=== PATIENT | male | born 1955 | race Asian ===

== ENCOUNTER → 2017-09-08 | Outpatient (CLI) | payer BC ==
[2017-09-08 12:15] LABS: ALT 41 U/L (21-72); AST 26 U/L (17-59); Albumin 4.6 g/dL (3.5-5.0); Alkaline Phosphatase 97 U/L (38-126); Anion Gap 13 mmol/L; Blood Urea Nitrogen 23 mg/dL (9-20); Carbon Dioxide 29 mmol/L (22-30); Chloride 99 mmol/L (98-107); Cholesterol 121 mg/dL (<200); Glucose 97 mg/dL (74-99); HDL Cholesterol 55 mg/dL (40-60); LDL Cholesterol,Calculated 47 mg/dL (0-99); Potassium 4.9 mmol/L (3.5-5.1); Sodium 141 mmol/L (137-145); Total Bilirubin 0.6 mg/dL (0.2-1.3); Total Protein 7.9 g/dL (6.3-8.2); Triglycerides 97 mg/dL (<150)
[2017-09-08 21:13] LABS: Hemoglobin A1C 6.6 % (4.0-6.0)
== END | disposition home or self-care (01) ==
LOC: LABWHC1 11:35
PROVIDERS: ATTEND Internal Medicine Endocrinology, Diabetes & Metabolism
DX: E11.65 Type 2 diabetes mellitus with hyperglycemia (principal)
CPT/HCPCS: 36415; 80053; 80061; 82043; 82570; 83036

== ENCOUNTER → 2018-05-15 | Outpatient (CLI) | payer BC | END | disposition home or self-care (01) | LOC: LABWHC1 09:12 | PROVIDERS: ATTEND Internal Medicine Endocrinology, Diabetes & Metabolism | DX: E11.65 Type 2 diabetes mellitus with hyperglycemia (principal); I10 Essential (primary) hypertension; E29.1 Testicular hypofunction | CPT/HCPCS: 36415; 83002; 84146; 84403; 84443 ==

== ENCOUNTER → 2018-10-27 | Outpatient (CLI) | payer BC ==
[2018-10-28 00:42] LABS: Albumin 4.6 g/dL (3.80-4.90); Albumin/Globulin Ratio 1.92 (1.60-3.17); Anion Gap 10.8 mmol/L (4.00-12.00); Calcium 9.5 mg/dL (8.7-10.3); Carbon Dioxide 27.2 mmol/L (21.6-31.8); Globulin 2.4 g/dL (1.6-3.3); Potassium 4.8 mmol/L (3.5-5.5); Total Bilirubin 0.7 mg/dL (0.3-1.2)
[2018-10-28 01:10] LABS: Hemoglobin A1C 6.5 % (4.0-6.0)
== END | disposition home or self-care (01) ==
LOC: LABWHC1 13:44
PROVIDERS: ATTEND Internal Medicine Endocrinology, Diabetes & Metabolism
DX: E11.9 Type 2 diabetes mellitus without complications (principal)
CPT/HCPCS: 36415; 80053; 83036; 84443; 84681

== ENCOUNTER → 2018-12-14 | Outpatient (CLI) | payer BC ==
[2018-12-14 17:49] LABS: LDL Cholesterol,Calculated 38.8 mg/dL (0.0-131.0); VLDL Calculation 19.2 mg/dL (5.00-40.00)
== END | disposition home or self-care (01) ==
LOC: LABWHC1 09:11
PROVIDERS: ATTEND Internal Medicine Endocrinology, Diabetes & Metabolism
DX: E11.9 Type 2 diabetes mellitus without complications (principal)
CPT/HCPCS: 36415; 80061; 82043; 82570

== ENCOUNTER → 2019-08-17 | Outpatient (CLI) | payer BC ==
[2019-08-17 15:57] LABS: African American GFR (CKD) 105.7 (60.0-200.0); Albumin 4.5 g/dL (3.80-4.90); Albumin/Globulin Ratio 1.67 (1.60-3.17); Anion Gap 6.9 mmol/L (4.00-12.00); BUN/Creat Ratio 21.11 Ratio (12.00-20.00); Calcium 9.2 mg/dL (8.7-10.3); Carbon Dioxide 30.1 mmol/L (21.6-31.8); Chol/HDL Ratio 2.14; Globulin 2.7 g/dL (1.6-3.3); LDL Cholesterol,Calculated 41.2 mg/dL (0.0-131.0); Non-African American GFR(CKD) 91.2 (60.0-200.0); Potassium 4.5 mmol/L (3.5-5.5); Total Bilirubin 0.7 mg/dL (0.3-1.2); Total Protein 7.2 g/dL (6.2-8.2); VLDL Calculation 16.8 mg/dL (5.00-40.00)
[2019-08-17 16:24] LABS: Urine Creatinine 151.1 mg/dL
[2019-08-17 16:58] LABS: Hemoglobin A1C 6.5 % (4.0-6.0)
== END | disposition home or self-care (01) ==
LOC: LABWHC1 09:36
PROVIDERS: ATTEND Internal Medicine Endocrinology, Diabetes & Metabolism
DX: E11.65 Type 2 diabetes mellitus with hyperglycemia (principal)
CPT/HCPCS: 36415; 80053; 80061; 82043; 82570; 83036; 84443

== ENCOUNTER → 2021-10-12 | Outpatient (CLI) | payer OTHER ==
[2021-10-12 23:01] LABS: Microalbumin Creatinine Ratio <30 mg/g Creat (0-30); Urine Creatinine 55.9 mg/dL (39.0-259.0)
[2021-10-12 23:34] LABS: African American GFR (CKD) 106.5 (60.0-200.0); Albumin 4.4 g/dL (3.8-4.9); Albumin/Globulin Ratio 1.49 (1.60-3.17); Anion Gap 10.1 mmol/L (10.00-18.00); BUN/Creat Ratio 17.56 Ratio (12.00-20.00); Calcium 9.4 mg/dL (8.7-10.3); Carbon Dioxide 27.9 mmol/L (20.0-27.5); Non-African American GFR(CKD) 91.9 (60.0-200.0); Potassium 4.4 mmol/L (3.5-5.5); Total Bilirubin 0.3 mg/dL (0.30-1.20); Total Protein 7.4 g/dL (6.2-8.2)
== END | disposition home or self-care (01) ==
LOC: LABWHC1 14:24
PROVIDERS: ATTEND Internal Medicine Endocrinology, Diabetes & Metabolism
DX: E11.65 Type 2 diabetes mellitus with hyperglycemia (principal)
CPT/HCPCS: 36415; 80053; 82043; 82570; 83036; 84443

== ENCOUNTER → 2022-09-09 | Outpatient (CLI) | payer MEDICARE ==
[2022-09-09 16:26] LABS: ALT 35 U/L (10-49); AST 25 U/L (14-35); African American GFR (CKD) 103.5 (60.0-200.0); Albumin 4.5 g/dL (3.8-4.9); Albumin/Globulin Ratio 1.55 (1.60-3.17); Alkaline Phosphatase 96 U/L (41-126); BUN/Creat Ratio 19.56 Ratio (12.00-20.00); Blood Urea Nitrogen 17.6 mg/dL (9.0-27.0); Calcium 9.5 mg/dL (8.7-10.3); Carbon Dioxide 28.1 mmol/L (20.0-27.5); Chloride 102 mmol/L (96-109); Chol/HDL Ratio 2.11 Ratio; Globulin 2.9 g/dL (1.6-3.3); Glucose 97 mg/dL (70-110); LDL Cholesterol,Calculated 44.6 mg/dL (0.0-131.0); Non-African American GFR(CKD) 89.3 (60.0-200.0); Sodium 138 mmol/L (135-145); Total Protein 7.4 g/dL (6.2-8.2); VLDL Calculation 15.98 mg/dL (5.00-40.00)
[2022-09-09 18:51] LABS: Microalbumin Creatinine Ratio <30 mg/g Creat (0-30); Urine Creatinine 95.6 mg/dL (39.0-259.0)
== END | disposition home or self-care (01) ==
LOC: LABWHC1 09:23
PROVIDERS: ATTEND Internal Medicine Endocrinology, Diabetes & Metabolism
DX: E11.65 Type 2 diabetes mellitus with hyperglycemia (principal)
CPT/HCPCS: 36415; 80053; 80061; 82043; 82570; 84443

== ENCOUNTER → 2023-04-21 | Outpatient (CLI) | payer MEDICARE ==
[2023-04-21 16:45] LABS: ALT 24 U/L (10-49); AST 19 U/L (14-35); Albumin 4.4 g/dL (3.8-4.9); Albumin/Globulin Ratio 1.63 Ratio (1.60-3.17); Alkaline Phosphatase 89 U/L (41-126); BUN/Creat Ratio 19.62 Ratio (12.00-20.00); Blood Urea Nitrogen 15.7 mg/dL (9.0-27.0); Calcium 9.3 mg/dL (8.7-10.3); Carbon Dioxide 25.2 mmol/L (21.6-31.8); Chloride 103 mmol/L (96-109); Globulin 2.7 g/dL (1.6-3.3); Glucose 90 mg/dL (70-110); LDL Cholesterol,Calculated 107.5 mg/dL (0.0-131.0); Sodium 138 mmol/L (135-145); Total Bilirubin 0.5 mg/dL (0.3-1.2); Total Protein 7.1 g/dL (6.2-8.2); VLDL Calculation 18.34 mg/dL (5.00-40.00)
[2023-04-21 21:58] LABS: Microalbumin Creatinine Ratio <12 mg/g Cr (0-30)
== END | disposition home or self-care (01) ==
LOC: LABWHC1 08:25
PROVIDERS: ATTEND Internal Medicine Endocrinology, Diabetes & Metabolism
DX: E11.65 Type 2 diabetes mellitus with hyperglycemia (principal)
CPT/HCPCS: 36415; 80053; 80061; 82043; 82570; 83036; 84443

== ENCOUNTER → 2023-08-06 | Outpatient (CLI) | payer MEDICARE ==
--- NOTE | 2023-08-08 12:17 | NM ---
EXAMINATION TYPE: NM thyroid image w uptake DATE OF EXAM: 08/07/2023 COMPARISON: NONE CLINICAL INDICATION: Male, 67 years old with history of [id number] THYROTOXICOSIS, UNSP WITHOUT THYROTOXIC RICCARDO; TECHNIQUE: Thyroid iodine uptake is calculated and images performed after the oral administration of 314 uCi 1-123 Capsule. FINDINGS: There is normal distribution of activity throughout the gland. The 4 hour iodine uptake is calculated at 5.6% (normal range 8-14%). The 24-hour iodine uptake is calculated at 10.1% (normal range 15-35%). IMPRESSION: 1. Low iodine uptake values suggest hypothyroidism. If thyroid hormone levels are elevated, consider possibilities such as subacute thyroiditis. 2. In addition, there is suggestion of a cold nodule in the right midpole. Ultrasound recommended to further characterize and determine the need for FNA.
== END | disposition home or self-care (01) ==
LOC: RADNMMAIN 08:41
PROVIDERS: ATTEND Internal Medicine Endocrinology, Diabetes & Metabolism
DX: E05.90 Thyrotoxicosis, unspecified without thyrotoxic crisis or storm (principal)
CPT/HCPCS: 78014; A9516

== ENCOUNTER → 2023-08-25 | Outpatient (CLI) | payer MEDICARE ==
[2023-08-25 17:12] LABS: T4, Free (Free Thyroxine) 1.25 ng/dL (0.80-1.80)
== END | disposition home or self-care (01) ==
LOC: LABWHC1 13:01
PROVIDERS: ATTEND Internal Medicine Endocrinology, Diabetes & Metabolism
DX: E05.90 Thyrotoxicosis, unspecified without thyrotoxic crisis or storm (principal); E11.65 Type 2 diabetes mellitus with hyperglycemia
CPT/HCPCS: 36415; 84439; 84443; 84445; 84480

== ENCOUNTER → 2023-10-29 | Outpatient (CLI) | payer MEDICARE ==
--- NOTE | 2023-10-29 14:11 | US ---
EXAMINATION TYPE: US thyroid st tissue head/neck DATE OF EXAM: 10/29/2023 COMPARISON: NONE CLINICAL INDICATION: Male, 67 years old with history of E05.90 THYROTOXICOSIS, UNSP WITHOUT THYROTOXI C CRI; abnormal labs GLAND SIZE: Right Lobe: 6.7 x 3.5 x 4.4 cm Overall Parenchyma: heterogeneous Left Lobe: 5.7 x 1.7 x 2.6 cm Overall Parenchyma: homogeneous Isthmus Thickness: .3 cm NODULES RIGHT: # of nodules measured on right: 1 1. 3.2 X 2.5 x 3.0 cm, lower medial Prior size: No previous TIRADS Score: 3 TIRADS Category 3: Composition: Mixed cystic and solid (1 point). Echogenicity: Hypoechoic (2 points). Shape: Wider than tall (0 points). Margin: Smooth (0 points). Echogenic foci: None or large comet-tail artifacts (0 points) Recommendation: If >2.5cm: FNA; If >1.5cm: Follow up at 1,3,5 years LEFT: # of nodules measured on left: 0 ISTHMUS: # of nodules measured in the isthmus: 0 Bilateral neck scanned, no evidence of lymphadenopathy. IMPRESSION: Right thyroid nodule meets criteria for FNA if not already performed.
[2023-10-29 16:13] LABS: ALT 29 U/L (10-49); AST 25 U/L (14-35); Albumin 4.2 g/dL (3.8-4.9); Albumin/Globulin Ratio 1.75 Ratio (1.60-3.17); Alkaline Phosphatase 113 U/L (41-126); Blood Urea Nitrogen 13.2 mg/dL (9.0-27.0); Calcium 9.4 mg/dL (8.7-10.3); Carbon Dioxide 26.6 mmol/L (21.6-31.8); Chloride 106 mmol/L (96-109); Globulin 2.4 g/dL (1.6-3.3); Glucose 158 mg/dL (70-110); Potassium 4.8 mmol/L (3.5-5.5); Sodium 143 mmol/L (135-145); T4, Free (Free Thyroxine) 1.22 ng/dL (0.80-1.80); Total Bilirubin 0.3 mg/dL (0.3-1.2); Total Protein 6.6 g/dL (6.2-8.2)
[2023-10-29 19:42] LABS: Microalbumin Creatinine Ratio <26 mg/g Cr (0-30); Urine Creatinine 46.3 mg/dL (39.0-259.0)
== END | disposition home or self-care (01) ==
LOC: RADUSWWP 11:47
PROVIDERS: ATTEND Internal Medicine Endocrinology, Diabetes & Metabolism
DX: E04.1 Nontoxic single thyroid nodule (principal); E05.90 Thyrotoxicosis, unspecified without thyrotoxic crisis or storm; E11.65 Type 2 diabetes mellitus with hyperglycemia
CPT/HCPCS: 36415; 76536; 80053; 82043; 82570; 83036; 84439; 84443; 84480; 84481

== ENCOUNTER → 2024-06-25 | Outpatient (CLI) | payer MEDICARE ==
[2024-06-26 02:11] LABS: Microalbumin Creatinine Ratio <14 mg/g Cr (0-30); Urine Creatinine 87.2 mg/dL (39.0-259.0)
[2024-06-26 02:21] LABS: ALT 33 U/L (10-49); AST 26 U/L (14-35); Albumin 4.5 g/dL (3.8-4.9); Albumin/Globulin Ratio 1.61 Ratio (1.60-3.17); Alkaline Phosphatase 131 U/L (41-126); BUN/Creat Ratio 17.25 Ratio (12.00-20.00); Blood Urea Nitrogen 13.8 mg/dL (9.0-27.0); Calcium 9.6 mg/dL (8.7-10.3); Carbon Dioxide 26.6 mmol/L (21.6-31.8); Chloride 101 mmol/L (96-109); Globulin 2.8 g/dL (1.6-3.3); Glucose 124 mg/dL (70-110); LDL Cholesterol,Calculated 39.6 mg/dL (0.0-131.0); Potassium 4.5 mmol/L (3.5-5.5); Sodium 139 mmol/L (135-145); Total Bilirubin 0.3 mg/dL (0.3-1.2); Total Protein 7.3 g/dL (6.2-8.2)
== END ==
LOC: LABWHC1 16:04
PROVIDERS: ATTEND Internal Medicine Endocrinology, Diabetes & Metabolism
DX: E11.9 Type 2 diabetes mellitus without complications (principal)
CPT/HCPCS: 36415; 80053; 80061; 82043; 82570; 83036; 84443

== ENCOUNTER → 2024-11-08 | Outpatient (CLI) | payer MEDICARE ==
[2024-11-08 18:28] LABS: HCT 44.1 % (39.6-50.0); HGB 14.7 g/dL (13.0-17.0); MCH 31.6 pg (27.0-32.0); MCHC 33.3 g/dL (32.0-37.0); MCV 94.8 FL (80.0-97.0); Mean Platelet Volume 10.1 FL (9.5-12.2); NRBC Per 100 WBC 0 X 10*3/uL (0.00-0.01); Platelet Count 175 X 10*3/uL (140-440); RBC 4.65 X 10*6/uL (4.40-5.60); RDW 12.8 % (11.5-14.5); WBC 4.67 X 10*3/uL (4.50-10.00)
[2024-11-08 18:40] LABS: C Reactive Protein 0.5 mg/dL (0.00-0.80); Calcium 8.4 mg/dL (8.7-10.3); Magnesium 1.9 mg/dL (1.5-2.4)
[2024-11-08 19:39] LABS: Basophils # (M) 0 X 10*3/uL (0.00-0.10); Eosinophils # (M) 0.05 X 10*3/uL (0.04-0.35); Macrocytosis (M) 2+ (None Seen); Monocytes # (M) 0.19 X 10*3/uL (0.20-1.00); Neutrophils # (M) 3.74 X 10*3/uL (1.80-7.70); Neutrophils % (M) 80 %
[2024-11-08 21:33] LABS: Erythrocyte Sedimentation Rate 18 mm/Hr (0-20)
[2024-11-10 09:25] LABS: Aldolase 11.9 U/L (1.2-7.6)
== END | disposition home or self-care (01) ==
LOC: LABWHC1 13:34
PROVIDERS: ATTEND Psychiatry & Neurology Neurology
DX: R41.3 Other amnesia (principal); G72.2 Myopathy due to other toxic agents; Z79.899 Other long term (current) drug therapy
CPT/HCPCS: 36415; 82085; 82310; 82550; 83735; 83874; 84450; 84460; 85025; 85652; 86140